=== PATIENT | female | born 1995 | race Caucasian/White ===

== ENCOUNTER 2019-06-01 16:55 | Outpatient (CLI) | payer BC ==
[~2019-06-01] VITALS: Ht 167.6 cm; Wt 64.4 kg
--- NOTE | 2019-06-01 17:05 | NUR ---
ELILA KEARNS presented to unit from ED, with c/o ABD PAIN. LEILA KEARNS weighed, gowned, voided, and to bed. EFHM and TOCO applied, VS taken. LEILA KEARNS oriented to bed controls, call light, TV, heat, and A/C controls.
[2019-06-01 17:25] LABS: BILIRUBIN,URINE NEGATIVE (NEGATIVE); CLARITY,URINE VERY CLOUDY; COLOR,URINE YELLOW; GLUCOSE, URINE (UA) NEGATIVE (NEGATIVE); KETONES,URINE NEGATIVE (NEGATIVE); LEUKOCYTE ESTERASE ,URINE 1+ (NEGATIVE); NITRITE,URINE NEGATIVE (NEGATIVE); PH,URINE 7 (5-9); PROTEIN,URINE 1+ (NEGATIVE); UROBILINOGEN,URINE NORMAL (NORMAL)
[2019-06-01 17:32] LABS: AMORPHOUS SEDIMENT,UR MOD AMOR PHOSPHATE /LPF; BACTERIA,URINE FEW /HPF; WBC,URINE 0-2 /HPF
--- NOTE | 2019-06-01 17:52 | NUR ---
Dr. Saucedo notified of patient's arrival, complaints, EFM tracing, and UA results. New orders received.
--- NOTE | 2019-06-01 17:54 | NUR ---
Reactive FHR tracing for gestational age (25.2). FHR baseline 145 bpm with accels noted up to 150 bpm. Occasional variable decel noted. No ctx's noted. +FM heard.
[2019-06-01] MEDS ORDERED: CEPH-507 PO (18:03)
--- NOTE | 2019-06-01 18:07 | NUR ---
Discharge instructions and medications reviewed with patient both written and verbally. Patient verbalizes understanding and denies any current questions or concerns at this time. Prescription called to [facility] per patient's request.
--- NOTE | 2019-06-01 18:15 | NUR ---
Patient discharged at this time and ambulated from the unit with family. No signs or symptoms of distress noted.
== END 2019-06-01 18:15 | disposition home or self-care (01) ==
LOC: LDRP 16:55 → WSo 16:55
PROVIDERS: ATTEND Family Medicine
DX: O99.89 Other specified diseases and conditions complicating pregnancy, childbirth and the puerperium (principal); R10.9 Unspecified abdominal pain; Z3A.25 25 weeks gestation of pregnancy
CPT/HCPCS: 81000; 99213